=== PATIENT | male | born 1955 | race Caucasian/White ===

== ENCOUNTER 2019-03-02 19:21 | Observation (INO) ==
[2019-03-02] MEDS ORDERED: methylPREDNISolone 125 MG/2 ML VIAL IVP ONE (19:26)
[2019-03-02] MEDS ORDERED: Ipratropium/Albuterol Neb 3 ML IH ONE ×2 (19:26→20:22)
--- NOTE | 2019-03-02 19:26 | Emergency Department Note ---
Disposition Clinical Impression: Hyperglycemia Dyspnea Qualifiers: Dyspnea type: acute respiratory distress Qualified Code(s): R06.03 - Acute respiratory distress Disposition: Admitted As Inpatient Condition: Fair Referrals: Eric Wagner, THERAPIST SPEECH [Primary Care Provider] - Forms: ED Satisfaction Letter Time of Disposition: 20:58 SOB HPI - General Chief Complaint: ED Shortness of Breath/Dyspnea Stated Complaint: sob Time Seen by Provider: 03/02/19 19:25 Source: patient Mode of arrival: private vehicle Limitations: physical limitation Nursing Notes Reviewed: Yes Vital Signs Reviewed: Yes - History of Present Illness Patient presents stating he is in the emergency department yesterday and was having increasing shortness of breath. He has rails were probably respiration a ppears severely dyspneic. He states this is worse with laying down or exertion. He denies any history of CHF nor asthma or COPD. States he has never had use of an inhaler in the past. 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 He states that his been more pain than shortness of breath. He states his trouble now is "just breathing". He denies any chest pain or palpitations. He denies any respiratory irritants or fainting. He denies any change in medicines or any ill exposures. He denies lower extremity swelling, immobilization or injury. He reports a scant cough which is rapidly been nonproductive. He was fully evaluated yesterday at [facility], [place] x-ray and a CT PE study without finding acute abnormality other than as noted that his blood sugar was 499. He was discharged on prednisone and albuterol. He filled those today but has not started them. - Related Data Previous Rx's Medication Instructions Recorded Albuterol Sulfate [Albuterol 2 puff IH Q4HR #1 hfa.aer.ad 03/01/19 Inhaler] predniSONE [PredniSONE] 60 mg PO DAILY #15 tablet 03/01/19 Allergies Allergy/AdvReac Type Severity Reaction Status Date / Time tetanus and diphtheria Allergy Hives Verified 12/11/15 13:19 toxoids [Tetanus&Diphtheria Toxoid] tpa Allergy Anaphylaxis Uncoded 12/11/15 13:19 All systems ED: reviewed and negative except as stated. Past Medical History - Past Medical History Attestation: Yes The following information was validated with the patient. Source: patient, old records reviewed, nursing notes reviewed Medical history: Reports: cancer, CVA, hyperlipidemia, pulmonary embolus, other Surgical history: Reports: cholecystectomy, herniorrhaphy, IVC Filter, tonsillectomy Psychiatric history: Reports: no psych history - Social History Smoking Status: Current every day smoker Smokeless Tobacco Status: No Alcohol use: Reports: none Drug use: Reports: none Physical Exam - General Limitations: physical limitation (Dyspnea) General appearance: alert, in distress - Head Head exam: atraumatic - Eye Eye exam: Present: normal appearance, PERRL, EOMI. Absent: scleral icterus, conjunctival injection - ENT ENT exam: normal exam, normal oropharynx, other (No retropharyngeal swelling and edema, mucus or fluid) - Neck Neck exam: Present: normal inspection, full ROM, trachea midline - Chest Chest inspection: Present: normal inspection, symmetric chest wall rise - Respiratory Respiratory exam: Present: respiratory distress, other (Rattling and wet breath sounds) - Cardiovascular Cardiovascular exam: Present: regular rate, normal rhythm, normal heart sounds. Absent: tachycardia - Abdominal Exam Abdominal exam: Present: soft, Non-Tender, normal bowel sounds. Absent: tenderness, distention, guarding, rebound, rigidity - Extremities Exam Extremities exam: Present: normal inspection, full ROM, normal capillary refill. Absent: tenderness, pedal edema, calf tenderness - Expanded Lower Extremity Exam Neurovascular/Tendon exam: Present: normal capillary refill. Absent: motor deficit, sensory deficit, tendon deficit Gait: observed and normal - Back Exam Back exam: Present: normal inspection, full ROM. Absent: tenderness - Neurological Exam Neurological exam: Present: alert, oriented X3. Absent: CN II-XII intact, normal gait - Psychiatric Psychiatric exam: Present: normal affect, anxious - Skin Skin exam: Present: warm, dry, intact, normal color. Absent: cyanosis, diaphoresis Course Course Narrative: With return of testing, the patient is remaining dyspneic with a rattly respiration. Additional DuoNeb aerosols have been needed. Given the lack of fluid overload a negative BNP has fluids or liberalized and he is started on Rocephin and azithromycin. It is noted that his blood sugar is elevated and he is given a dose of Humulin R. He does not have a previous diagnosis of diabetes. I do not believe that his current problem is secondary to diabetes. This will, however, need stabilization and further evaluation and treatment. I recommended his observation with hydration, follow his blood sugars and respiratory treatment. This is discussed with Dr. Bess was given verbal orders for his observation. Vital Signs Temperature 98.4 F 03/02/19 19:24 Pulse Rate 85 03/02/19 19:24 Respiratory Rate 19 03/02/19 19:24 Blood Pressure 152/91 03/02/19 19:24 O2 Sat by Pulse Oximetry 93 03/02/19 19:24 Temperature 98.4 F 03/02/19 19:24 Pulse Rate 83 03/02/19 20:18 Respiratory Rate 22 03/02/19 20:18 Blood Pressure 134/73 03/02/19 20:18 O2 Sat by Pulse Oximetry 94 03/02/19 20:18 Oxygen Delivery Oxygen Delivery Nasal Cannula Shortness of Breath/Dyspnea - Differential Diagnosis Likely: acute exacerbation of chronic obstructive airways disease, congestive heart failure, pneumonia, asthma with exacerbation - Medical Records Medical records reviewed: Yes I reviewed the patient's medical records. CT/CT angio chest IMPRESSION: 1. No evidence of pulmonary embolic disease. 2. No acute pulmonary findings. Interval resolution of cavitary nodules noted throughout the lungs. 3. Several noncalcified pulmonary nodules, the largest in the left upper lobe measuring 5 mm. Follow-up recommendations below. D/ / 03/01/2019 16:24:08 Benny Wall MD / [facility] - Lab Data Lab results reviewed: Yes I reviewed the patient's lab results. Result diagrams: 03/02/19 19:40 03/02/19 19:40 Lab Results 03/02/19 03/02/19 03/02/19 Range/Units 19:40 19:40 19:40 WBC 11.2 H (4.3-11.1) K/mcL RBC 4.73 (4.19-5.50) M/mcL Hgb 15.2 (12.9-16.9) g/dL Hct 43.0 (37.5-50.1) % MCV 90.9 (83.0-100.0) fL MCH 32.1 (28.0-33.3) pg MCHC 35.3 (31.6-35.5) g/dL RDW 11.9 (11.5-14.5) % Plt Count 205 (140-400) K/mcL MPV 10.0 (9.4-12.4) fL Immature Gran % 0.6 (0-4) % Seg Neutrophils % 76.8 % Lymphocytes % 15.1 % Monocytes % 4.9 % Eosinophils % 2.0 % Basophils % 0.6 % Neutrophils # 8.6 (1.6-8.9) K/mcL Lymphocytes # 1.7 (0.6-4.6) K/mcL Monocytes # 0.6 (0.0-1.3) K/mcL Eosinophils # 0.2 (0.0-0.6) K/mcL Basophils # 0.1 (0.0-0.2) K/mcL PT (9.4-12.1) Seconds INR APTT (26.0-36.0) Seconds Sodium 136 (136-145) mEq/L Potassium 4.0 (3.5-5.1) mEq/L Chloride 101 (98-107) mEq/L Carbon Dioxide 27 (23-29) mEq/L BUN 12 (8-23) mg/dL Creatinine 0.79 (0.70-1.30) mg/dL Est GFR ( Amer) > 60 (> 60) Est GFR (Non-Af Amer) > 60 (> 60) BUN/Creatinine Ratio 15 (6-26) Glucose 387 H (70-105) mg/dL Calculated Osmolality 298 (280-300) Lactic Acid 1.0 (0.5-2.2) mmol/L Calcium 9.6 (8.6-10.3) mg/dL Total Bilirubin 0.4 (0.3-1.0) mg/dL Direct Bilirubin 0.1 (0.0-0.2) mg/dL Indirect Bilirubin 0.3 (0.0-1.2) mg/dL AST 14 (13-39) Units/L ALT 13 (7-52) Units/L Alkaline Phosphatase 68 (34-104) Units/L Troponin I < 0.03 (< 0.04) ng/mL B-Natriuretic Peptide (Less than 100) pg/mL Serum Total Protein 6.8 (6.4-8.9) g/dL Albumin 4.0 (3.5-5.7) g/dL Globulin 2.8 (2.4-3.5) g/dL Albumin/Globulin Ratio 1.4 (1.1-2.2) 03/02/19 03/02/19 Range/Units 19:40 19:40 WBC (4.3-11.1) K/mcL RBC (4.19-5.50) M/mcL Hgb (12.9-16.9) g/dL Hct (37.5-50.1) % MCV (83.0-100.0) fL MCH (28.0-33.3) pg MCHC (31.6-35.5) g/dL RDW (11.5-14.5) % Plt Count (140-400) K/mcL MPV (9.4-12.4) fL Immature Gran % (0-4) % Seg Neutrophils % % Lymphocytes % % Monocytes % % Eosinophils % % Basophils % % Neutrophils # (1.6-8.9) K/mcL Lymphocytes # (0.6-4.6) K/mcL Monocytes # (0.0-1.3) K/mcL Eosinophils # (0.0-0.6) K/mcL Basophils # (0.0-0.2) K/mcL PT 10.5 (9.4-12.1) Seconds INR 0.9 APTT 31.5 (26.0-36.0) Seconds Sodium (136-145) mEq/L Potassium (3.5-5.1) mEq/L Chloride (98-107) mEq/L Carbon Dioxide (23-29) mEq/L BUN (8-23) mg/dL Creatinine (0.70-1.30) mg/dL Est GFR ( Amer) (> 60) Est GFR (Non-Af Amer) (> 60) BUN/Creatinine Ratio (6-26) Glucose (70-105) mg/dL Calculated Osmolality (280-300) Lactic Acid (0.5-2.2) mmol/L Calcium (8.6-10.3) mg/dL Total Bilirubin (0.3-1.0) mg/dL Direct Bilirubin (0.0-0.2) mg/dL Indirect Bilirubin (0.0-1.2) mg/dL AST (13-39) Units/L ALT (7-52) Units/L Alkaline Phosphatase (34-104) Units/L Troponin I (< 0.04) ng/mL B-Natriuretic Peptide 184 H (Less than 100) pg/mL Serum Total Protein (6.4-8.9) g/dL Albumin (3.5-5.7) g/dL Globulin (2.4-3.5) g/dL Albumin/Globulin Ratio (1.1-2.2) - Radiology Data Radiology results reviewed: Yes I reviewed the patient's radiology results. Single view chest x-ray is performed. This does not demonstrate evidence for infiltrate, effusion, pneumothorax, foreign body or heart failure. The cardiac silhouette is normal. I do not see abnormality to the osseous structures of the chest. This is on my interpretation. Impressions Chest X-Ray 03/02/19 19:56 IMPRESSION: No acute cardiopulmonary process identified. D/ / Pacheco Elaine MD / Pacheco Elaine MD Interpreting Provider: Pacheco Elaine MD - EKG Data EKG attestation: Yes I reviewed and interpreted this EKG. EKG shows normal: Reports: sinus rhythm, axis, intervals, QRS complexes, ST-T waves Rate: Reports: normal (87) Interpretation: Reports: no acute changes, normal EKG
[2019-03-02 19:56] LABS: Basophils # 0.1 K/mcL (0.0-0.2); Basophils % 0.6 %; Eosinophils # 0.2 K/mcL (0.0-0.6); Hemoglobin 15.2 g/dL (12.9-16.9); Immature Granulocytes % 0.6 % (0-4); Lymphocytes # 1.7 K/mcL (0.6-4.6); Lymphocytes % 15.1 %; Mean Corpuscular HGB Conc 35.3 g/dL (31.6-35.5); Mean Corpuscular Hemoglobin 32.1 pg (28.0-33.3); Mean Corpuscular Volume 90.9 fL (83.0-100.0); Monocytes # 0.6 K/mcL (0.0-1.3); Monocytes % 4.9 %; Neutrophils # 8.6 K/mcL (1.6-8.9); Platelet Count 205 K/mcL (140-400); Red Blood Count 4.73 M/mcL (4.19-5.50); Red Cell Distribution Width 11.9 % (11.5-14.5); Segmented Neutrophils % 76.8 %; White Blood Count 11.2 K/mcL (4.3-11.1)
[2019-03-02 20:02] LABS: INR 0.9; Prothrombin Time 10.5 Seconds (9.4-12.1)
[2019-03-02 20:04] LABS: Activated Partial Thrombo Time 31.5 Seconds (26.0-36.0)
[2019-03-02 20:09] LABS: Alanine Aminotransferase 13 Units/L (7-52); Albumin/Globulin Ratio 1.4 (1.1-2.2); Alkaline Phosphatase 68 Units/L (34-104); Aspartate Amino Transferase 14 Units/L (13-39); BUN/Creatinine Ratio 15 (6-26); Bilirubin,Direct 0.1 mg/dL (0.0-0.2); Bilirubin,Indirect 0.3 mg/dL (0.0-1.2); Bilirubin,Total 0.4 mg/dL (0.3-1.0); Blood Urea Nitrogen 12 mg/dL (8-23); Calcium 9.6 mg/dL (8.6-10.3); Carbon Dioxide 27 mEq/L (23-29); Chloride 101 mEq/L (98-107); Globulin 2.8 g/dL (2.4-3.5); Glucose 387 mg/dL (70-105); Osmolality,Calculated 298 (280-300); Sodium 136 mEq/L (136-145); Total Protein 6.8 g/dL (6.4-8.9); eGFR For African Americans > 60 (> 60); eGFR For Non-African Americans > 60 (> 60)
[2019-03-02 20:13] LABS: Troponin I < 0.03 ng/mL (< 0.04)
[2019-03-02] MEDS ORDERED: Azithromycin 500 MG in 0.9 % Sodium Chloride 250 ML IVPB ONE ×2 (20:29→21:42)
[2019-03-02] MEDS ORDERED: cefTRIAXone 2,000 MG in 0.9 % Sodium Chloride Mini Bag 100 ML IVPB ONE (20:29)
[2019-03-02] MEDS ORDERED: 0.9 % Sodium Chloride 1,000 ML IVC ONE (20:29)
[2019-03-02] MEDS ORDERED: 0.9 % Sodium Chloride 1,000 ML IVC SCH (20:30)
[2019-03-02] MEDS ORDERED: Insulin Regular, Human 100 UNIT/ML SQ ONE (20:32)
[2019-03-02] MEDS ORDERED: Albuterol 2.5 MG/3 ML NEBULIZER IH PRN (21:42)
[2019-03-02] MEDS ORDERED: Ondansetron ODT 4 MG TAB.RAPDIS SL PRN (21:42)
[2019-03-02] MEDS ORDERED: *HR* Dextrose 50 % in Water (Syg) 50 ML SYRINGE IVP PRN (21:42)
[2019-03-02] MEDS ORDERED: MOM Conc 10 ML UD.LIQ PO PRN (21:42)
[2019-03-02] MEDS ORDERED: D5% in Water 1,000 ML IVC PRN (21:42)
[2019-03-02] MEDS ORDERED: Mag Hydrox/Al Hydrox/Simeth 30 ML UDC PO PRN (21:42)
[2019-03-02] MEDS ORDERED: Naloxone 0.4 MG/ML INJ IVP PRN (21:42)
[2019-03-02] MEDS ORDERED: Dextrose Gel 15 GM/37.5 ML TUBE PO PRN ×2 (21:42)
[2019-03-02] MEDS: 0.9 % Sodium Chloride 1,000 ML IVC SCH (21:57)
[2019-03-02] MEDS: Ipratropium/Albuterol Neb 3 ML IH SCH (22:55)
[2019-03-03] MEDS: Ipratropium/Albuterol Neb 3 ML IH SCH ×2 (04:56→10:33)
[2019-03-03] MEDS: 0.9 % Sodium Chloride 1,000 ML IVC SCH (06:45)
[2019-03-03] MEDS ORDERED: *HR* Enoxaparin 40 MG/0.4 ML SYRINGE SQ SCH (07:00)
[2019-03-03 07:01] VITALS: BP 144/72
[2019-03-03] MEDS ORDERED: Insulin LISPRO 300 UNITS/3 ML VIAL SQ SCH (07:30)
[2019-03-03] MEDS ORDERED: predniSONE 20 MG TABLET PO SCH (08:00)
[2019-03-03 08:05] LABS: BUN/Creatinine Ratio 20 (6-26); Blood Urea Nitrogen 14 mg/dL (8-23); Calcium 8.8 mg/dL (8.6-10.3); Carbon Dioxide 21 mEq/L (23-29); Chloride 105 mEq/L (98-107); Glucose 388 mg/dL (70-105); Osmolality,Calculated 303 (280-300); Potassium 4.1 mEq/L (3.5-5.1); Sodium 138 mEq/L (136-145); eGFR For African Americans > 60 (> 60); eGFR For Non-African Americans > 60 (> 60)
[2019-03-03] MEDS ORDERED: *HR* Dextrose 50 % in Water (Vial) 50 ML VIAL IVP PRN (09:30)
--- NOTE | 2019-03-03 10:14 | Internal Med History&Physical ---
Date of Encounter: 03/03/19 Time of Encounter: 09:45 Assessment and Plan (1) Bronchitis, acute, with bronchospasm Current visit: No Status: Acute He reports dyspnea has lessened. He feels improved and wishes to be discharged home. (2) Dyspnea Current visit: Yes Status: Acute As above. Room air oximetry will be checked on 6 minute walk prior to discharge. Qualifiers: Dyspnea type: unspecified Qualified Code(s): R06.00 - Dyspnea, unspecified (3) Hyperglycemia Current visit: Yes Status: Acute Hemoglobin A1c will be ordered. Internal Medicine - H&P: HPI Chief complaint: Dyspnea Admitted From: Emergency Dept Plans for Post Hospital Care: Home History of present illness: Mr. Weathers is a 63 year old male who return to emergency room the day of admission complaining of dyspnea. He had been seen the previous day in ER for dyspnea and diagnosed with bronchitis. He was given prednisone and albuterol inhaler. Dyspnea persisted so he returned to emergency room. He was found to have hyperglycemia. He was admitted to [facility] floor for ongoing care needs. He denies known diabetes. He was started on prednisone the day prior to admi ssion as per above. He denies known thyroid disease or hyperlipidemia. Respiratory history is significant for having smoked since age 17 up to one pack per day. He does not use home oxygen and denies PFTs. Past Med Surg Social Fam HX - Past Medical History Medical history: cancer, CVA, hyperlipidemia, pulmonary embolus, other Additional medical history: remission from lung cancer. factor 5 deficiency. price- neurogenic bladder Psychiatric history: no psych history - Past Surgical History Surgical History: cholecystectomy, herniorrhaphy, IVC Filter, tonsillectomy Additional surgical history: SURGERY ON LEFT KNEE "I HAD TO HAVE IT CLEANED OUT." - Social History Smoking Status: Current every day smoker Smokeless Tobacco Status: No Alcohol use: none Drug use: none - Family History Father Hx Family Cancer: Yes Hx Family Endocrine Disorder: Yes Internal Medicine - H&P: Meds Albuterol Sulfate [Albuterol Inhaler] 2 puff IH Q4HR #1 hfa.aer.ad 03/01/19 [Rx] predniSONE [PredniSONE] 60 mg PO DAILY #15 tablet 03/01/19 [Rx] Allergy/AdvReac Type Severity Reaction Status Date / Time tetanus and diphtheria Allergy Hives Verified 12/11/15 13:19 toxoids [Tetanus&Diphtheria Toxoid] tpa Allergy Anaphylaxis Uncoded 12/11/15 13:19 All Systems PM: A 10-system review of systems was performed and is negative for pertinent findings except as documented above in the HPI. Review of systems: Gen.: He states his weight has been stable for several months Cardiovascular: He reports multiple DVT and PE. He has had IVC filter placed. He has factor V Leiden deficiency. He denies hypertension CO heart failure. Respiratory: As per history of present illness GI: He has had cholecystectomy. He denies disorders of his liver or exocrine pancreas : He has had kidney stones remotely. He has indwelling Price catheter secondary to bladder dysfunction from treatment for liver cancer. Neurologic: He reports a CVA 2009 left him with mild left-sided weakness. He denies seizures. Endocrine: As per history of present illness Hematology/oncology: He reports being diagnosed with liver cancer several years ago and underwent experimental treatment [facility]. He reports the cancer originally was found to spread to his kidneys and bladder but now he claims to be cancer free. He does not follow routinely with a flow machine operator/oncologist. He denies other internal malignancies or blood disorders other than factor V Leiden deficiency. Psychiatric: He denies anxiety depression or other mental health issues. [place] skeletal: He has DJD but denies gout or other bone joint or muscle disorders. - Constitutional Vitals: Temp Pulse Resp BP Pulse Ox 98.4 F 93 16 144/72 94 03/03/19 07:00 03/03/19 07:00 03/03/19 07:00 03/03/19 07:00 03/03/19 08:03 Exam: Gen.: He is a well-developed well-nourished male resting comfortably in bed who appears in no acute distress. He denies dyspnea. HEENT: Head is atraumatic and normocephalic. Eyes: EOMI. There is no scleral icterus. Mouth: Mucosa is moist. Neck: Supple and nontender. There is no thyromegaly or adenopathy noted. Heart: Regular without murmurs gallops or ectopics Lungs: No wheezes or crackles are heard. Abdomen: Soft and nontender. No masses or guarding are noted. Extremities: There is no cyanosis edema or clubbing noted. Dorsalis pedis and posterior tibial pulses are trace to 1+ palpable bilaterally. Neurologic: Mental status: He is talkative and a good historian. Cranial nerves: Smile is symmetric. Forehead wrinkles bilaterally. Tongue protrudes midline. EOMI. Motor: There is no pronator drift. Cerebellar: Finger to nose is intact bilaterally. Skin: Warm and dry Internal Med - H&P Results - Labs CBC & Chem 7: 03/02/19 19:40 03/03/19 07:10 Labs: Short CBC 03/02/19 Range/Units 19:40 WBC 11.2 H (4.3-11.1) K/mcL Hgb 15.2 (12.9-16.9) g/dL Hct 43.0 (37.5-50.1) % Plt Count 205 (140-400) K/mcL Neutrophils # 8.6 (1.6-8.9) K/mcL BMP 03/02/19 03/03/19 19:40 07:10 Sodium 136 138 Potassium 4.0 4.1 Chloride 101 105 Carbon Dioxide 27 21 L BUN 12 14 Creatinine 0.79 0.70 Glucose 387 H 388 H Calcium 9.6 8.8 Cardiac Enzymes 03/02/19 Range/Units 19:40 Troponin I < 0.03 (< 0.04) ng/mL Liver Function 03/02/19 Range/Units 19:40 Total Bilirubin 0.4 (0.3-1.0) mg/dL Direct Bilirubin 0.1 (0.0-0.2) mg/dL AST 14 (13-39) Units/L ALT 13 (7-52) Units/L Alkaline Phosphatase 68 (34-104) Units/L Albumin 4.0 (3.5-5.7) g/dL - Impressions ITS Impressions Chest X-Ray 03/02/19 19:56 IMPRESSION: No acute cardiopulmonary process identified. D/ / Pacheco Elaine MD / Pacheco Elaine MD Interpreting Provider: Pacheco Elaine MD
--- NOTE | 2019-03-03 10:22 | Electrocardiograph Report ---
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
--- NOTE | 2019-03-03 10:22 | Discharge Summary ---
Date of Encounter: 03/03/19 Time of Encounter: 09:45 - Discharge Diagnosis (1) Bronchitis, acute, with bronchospasm Priority: Primary Status: Acute (2) Dyspnea Priority: Secondary Status: Acute Qualifiers: Dyspnea type: unspecified Qualified Code(s): R06.00 - Dyspnea, unspecified (3) Hyperglycemia Priority: Secondary Status: Acute Hospital course: Mr. Weathers is a 63 year old male who return to emergency room the day of admission complaining of dyspnea. He had been seen the previous day in ER for dyspnea and diagnosed with bronchitis. He was given prednisone and albuterol inhaler. Dyspnea persisted so he returned to emergency room. He was found to have hyperglycemia. He was admitted to [facility] for ongoing care needs. I saw him the morning of March 03 and performed a history physical and discharge. By the time I saw him he stated his dyspnea had lessened and he felt improved and wished to be discharged home. Room air oximetry will be checked on 6 minute walk prior to discharge. I did not feel antibiotics were needed at this time. He remained afebrile during his hospital stay. Prednisone will be discontinued. Hemoglobin A1c was ordered prior to discharge. His PCP can follow up on this and determine if additional treatment for diabetes as needed. He will follow with his PCP Eric Wagner CNP within 1 week. I encouraged him to become a nonsmoker. I encouraged him to follow up with hematology/oncology for factor V Leiden deficiency and history of liver cancer with metastases. - Time Spent with Patient Total time spent providing and/or coordinating discharge services: - Discharge Medications Prescriptions: Continued Albuterol Sulfate [Proventil Inhaler] 2 puff IH Q4HR #1 hfa.aer.ad Discontinued predniSONE [PredniSONE] 60 mg PO DAILY #15 tablet Home Medications: Albuterol Sulfate [Proventil Inhaler] 2 puff IH Q4HR #1 hfa.aer.ad 03/01/19 [Rx] Allergies/Adverse Reactions: Allergy/AdvReac Type Severity Reaction Status Date / Time tetanus and diphtheria Allergy Hives Verified 12/11/15 13:19 toxoids [Tetanus&Diphtheria Toxoid] tpa Allergy Anaphylaxis Uncoded 12/11/15 13:19 Date of admission: 03/02/19 21:29 Primary care physician: Eric Wagner CNP - Constitutional Vitals: Temp Pulse Resp BP Pulse Ox 98.4 F 93 16 144/72 94 03/03/19 07:00 03/03/19 07:00 03/03/19 07:00 03/03/19 07:00 03/03/19 08:03 - Patient Status Disposition: Home, Self-Care Condition: Fair - Discharge Instructions Follow Up With: Eric Wagner, CUBE CUTTER [Primary Care Provider] - 1 week - Diet and Activity Activity: resume usual activities as tolerated Diet: advance to your usual diet
[2019-03-03] MEDS ORDERED: cefTRIAXone 2,000 MG in 0.9 % Sodium Chloride Mini Bag 100 ML IVPB SCH (17:00)
[2019-03-03 21:27] LABS: Estimated Average Glucose 324 mg/dl
[2019-03-03] MEDS ORDERED: Azithromycin 500 MG in 0.9 % Sodium Chloride 250 ML IVPB SCH (22:00)
== END 2019-03-03 10:47 | disposition home or self-care (01) ==
LOC: EMEROOPIK 19:21 → INPPIK 19:21
PROVIDERS: ADMIT Internal Medicine; ATTEND Internal Medicine